=== PATIENT | female | born 1985 | race Caucasian/White ===

== ENCOUNTER 2020-04-09 19:18 | Emergency (ER) | payer OTHER ==
[~2020-04-09] VITALS: Ht 157.5 cm; Wt 90.7 kg
[~2020-04-09 19:18] MED LIST: IBUPROFEN 800800 M1 PO; NOHOMEMEDICATIONS; ZOFRAN ODT4 MG PO
[2020-04-09 20:29] VITALS: BP 116/71
--- NOTE | 2020-04-10 08:36 | EKG ---
[facility] [place] [address] ELECTROCARDIOGRAM REPORT Name: EWA GLYNN Room #: [facility]#: [id number] Admission: 04/09/20 Attend Phys: Discharge: 04/09/20 Date of : 85 Report #: [id number] THIS REPORT FOR: cc: EBONY Martinez family physician/PCP EBONY - Michelle family physician/PCP Calvin Cooper MD [facility] THIS REPORT FOR: //name// [facility] ED Test Date: 2020-04-09 Test Time: 19:51:05 Pat Name: EWA GLYNN Department: Room: Gender: F [employer]: [facility] : 1985 Requested By: Monisha Reyes Order Number: [id number] MD: Calvin Cooper Measurements Intervals [place] Rate: 69 P: 33 GA: 181 QRS: -10 QRSD: 97 T: 0 QT: 363 QTc: 389 Interpretive Statements Sinus rhythm RSR' in V1 or V2, right VCD Compared to ECG 03/18/2015 09:46:15 No significant change was found Electronically Signed On 04-10-2020 8:36:18 CDT by Calvin Cooper [email or web address] <ELECTRONICALLY SIGNED> By: Calvin Cooper MD, FACC 04/10/20 0836 50 50 Calvin Cooper MD, [facility] /EPI
== END 2020-04-09 20:30 | disposition home or self-care (01) ==
LOC: ER 19:18
DX: R42 Dizziness and giddiness (principal); Z20.828 Contact with and (suspected) exposure to other viral communicable diseases